=== PATIENT | male | born 1975 ===

== ENCOUNTER 2020-09-29 09:26 | Outpatient (REF) | payer OTHER, SELFPAY | END 2020-09-29 09:27 | disposition home or self-care (01) | LOC: HO.LAB 09:26 | PROVIDERS: Visit Provider Internal Medicine | DX: Z20.828 Contact with and (suspected) exposure to other viral communicable diseases (principal) | CPT/HCPCS: C9803; U0003 ==

== ENCOUNTER 2024-09-17 08:46 | Outpatient (AMB) | payer OTHER, SELFPAY ==
[2024-09-17 08:50] VITALS: BP 124/76; PULSE 80; O2SAT 97; BMI 30.8
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
== END 2024-09-17 09:25 | disposition home or self-care (01) ==
PROVIDERS: PCP Physician Assistant Medical; Visit Provider Student in an Organized Health Care Education/Training Program
DX: M79.674 Pain in right toe(s) (principal)
CPT/HCPCS: 99203

== ENCOUNTER → 2024-09-17 08:46 | Outpatient (BNVA) | payer OTHER, SELFPAY | PROVIDERS: PCP Physician Assistant Medical; Visit Provider Student in an Organized Health Care Education/Training Program | DX: M79.674 Pain in right toe(s) (principal) | CPT/HCPCS: 99202 ==